=== PATIENT | male | born 1960 | race Caucasian/White ===

== ENCOUNTER 2018-02-23 07:01 | Inpatient (IN) ==
[2018-02-23 07:41] LABS: Basophils # 0.1 10*3/uL (0.0-0.2); Basophils % 0.8 % (0.0-0.8); Eosinophils # 0.3 10*3/uL (0.0-0.87); Eosinophils % 3.2 % (0.00-10.9); Hematocrit 50.4 VOL% (42.0-52.0); Hemoglobin 17.6 GM/DL (14.0-18.0); Immature Granulocytes % 0.6 %; Immature Granulocytes Absolute 0.05 #; Lymphocytes # 0.8 10*3/uL (1.4-4.0); Lymphocytes % 10.6 % (21.2-54.2); Mean Corpuscular HGB Conc 34.9 GM/DL (32-36); Mean Corpuscular Hemoglobin 31 PG (27-34); Mean Platelet Volume 10.1 FL (9.6-12.0); Monocytes # 0.7 10*3/uL (0.11-0.8); Monocytes % 8.7 % (1.7-12.7); Neutrophils # 5.9 10*3/uL (1.4-7.4); Neutrophils % 76.1 % (38.7-73.9); Platelet Count 275 T/CUMM (130-400); Red Blood Count 5.66 MC/CUMM (3.8-5.5); Red Cell Distribution Width 12.3 % (9.3-17.3); White Blood Count 7.8 T/CUMM (4-12)
[2018-02-23 07:42] LABS: INR 1.1; PT Patient Result 11.1 SECS; Partial Thromboplastin Time 29.9 SECS (0-40)
[2018-02-23 08:08] LABS: Alanine Aminotransferase 30 U/L (16-61); Albumin 3.7 G/DL (3.4-5.0); Alkaline Phosphatase 67 U/L (45-117); Aspartate Amino Transferase 19 U/L (0-37); Blood Urea Nitrogen 20 MG/DL (7-18); Calcium 8.9 MG/DL (8.5-10.1); Glucose 123 MG/DL (74-106); Osmolality,Calculated 280.5 MOS/KG (273-304); Potassium 3.7 MMOL/L (3.5-5.1); Sodium 139 MMOL/L (136-145); Total Protein 7.6 G/DL (6.4-8.3); Troponin I Only < 0.015 NG/ML (0.00-0.045)
[2018-02-23] MEDS ORDERED: hydrALAZINE 20 MG/1 ML VIAL IV STA ×2 (08:39→10:47)
[2018-02-23] MEDS ORDERED: ONDANSETRON 4 MG/2 ML VIAL IV STA (08:40)
[2018-02-23] MEDS ORDERED: fentaNYL 100 MCG/2 ML VIAL IV STA (08:40)
[2018-02-23] MEDS ORDERED: ONDANSETRON 4 MG/2 ML VIAL ONE (08:41)
[2018-02-23] MEDS ORDERED: fentaNYL 100 MCG/2 ML VIAL ONE (08:42)
[2018-02-23] MEDS ORDERED: KETOROLAC 30 MG/1 ML VIAL IV STA (10:47)
[2018-02-23] MEDS ORDERED: KETOROLAC 30 MG/1 ML VIAL ONE (10:48)
[2018-02-23] MEDS ORDERED: amLODIPine 5 MG TABLET PO STA (11:42)
[2018-02-23] MEDS ORDERED: DILTIAZEM 100 MG VIAL.ADD IV ONE (12:53)
[2018-02-23] MEDS ORDERED: niCARdipine 25 MG/10 ML VIAL IV ONE (12:55)
[2018-02-23] MEDS: niCARdipine INJ 25 MG in SODIUM CHLORIDE 0.9% 240 ML IV PRN ×3 (13:00→21:22)
[2018-02-23] MEDS ORDERED: diphenhydrAMINE CAP 25 MG CAPSULE PO PRN (13:47)
[2018-02-23] MEDS ORDERED: guaiFENesin/DM ER 600-30 MG TABLET PO PRN (13:47)
[2018-02-23] MEDS ORDERED: ACETAMINOPHEN 325 MG TABLET PO PRN (13:47)
[2018-02-23] MEDS ORDERED: FUROSEMIDE 20 MG TABLET PO PRN (13:50)
[2018-02-23] MEDS ORDERED: POTASSIUM CHLORIDE 20 MEQ TABLET PO SCH (14:00)
[2018-02-23] MEDS ORDERED: IBUPROFEN 800 MG TABLET PO PRN (14:09)
[2018-02-23] MEDS: APIXABAN 5 MG TABLET PO SCH ×2 (18:09→21:06)
[2018-02-23] MEDS: PANTOPRAZOLE 40 MG TABLET PO SCH (18:10)
[2018-02-23] MEDS: hydrALAZINE 25 MG TABLET PO SCH ×2 (18:10→21:06)
[2018-02-23] MEDS: FUROSEMIDE 40 MG/4 ML VIAL IV SCH (18:10)
[2018-02-23] MEDS: LISINOPRIL/HCTZ 20-12.5 MG TABLET PO SCH ×2 (18:10→21:06)
[2018-02-23] MEDS: CARVEDILOL 25 MG TABLET PO SCH ×2 (18:10→21:06)
[2018-02-24] MEDS: niCARdipine INJ 25 MG in SODIUM CHLORIDE 0.9% 240 ML IV PRN (00:56)
[2018-02-24] MEDS: LEVOTHYROXINE 200 MCG TABLET PO SCH (05:42)
[2018-02-24 05:45] LABS: Basophils % 0.4 % (0.0-0.8); Eosinophils # 0.2 10*3/uL (0.0-0.87); Eosinophils % 2.1 % (0.00-10.9); Hematocrit 47.4 VOL% (42.0-52.0); Hemoglobin 16.7 GM/DL (14.0-18.0); Immature Granulocytes % 0.8 %; Immature Granulocytes Absolute 0.06 #; Lymphocytes # 0.9 10*3/uL (1.4-4.0); Lymphocytes % 11.6 % (21.2-54.2); Mean Corpuscular HGB Conc 35.2 GM/DL (32-36); Mean Corpuscular Hemoglobin 32 PG (27-34); Mean Corpuscular Volume 89.9 FL (87-102); Mean Platelet Volume 10.5 FL (9.6-12.0); Monocytes # 0.8 10*3/uL (0.11-0.8); Monocytes % 9.4 % (1.7-12.7); Neutrophils % 75.7 % (38.7-73.9); Platelet Count 284 T/CUMM (130-400); Red Blood Count 5.27 MC/CUMM (3.8-5.5); Red Cell Distribution Width 12.5 % (9.3-17.3)
[2018-02-24 06:20] LABS: Calcium 8.8 MG/DL (8.5-10.1); Osmolality,Calculated 278.5 MOS/KG (273-304); Potassium 3.2 MMOL/L (3.5-5.1); Risk Ratio 3.79; VLDL CHOLESTEROL 19.6 MG/DL
[2018-02-24] MEDS: FUROSEMIDE 40 MG/4 ML VIAL IV SCH (08:56)
[2018-02-24] MEDS: POTASSIUM CHLORIDE 20 MEQ TABLET PO SCH ×4 (08:59→20:48)
[2018-02-24] MEDS: LISINOPRIL/HCTZ 20-12.5 MG TABLET PO SCH ×2 (08:59→20:47)
[2018-02-24] MEDS: hydrALAZINE 25 MG TABLET PO SCH ×2 (08:59→20:48)
[2018-02-24] MEDS: CARVEDILOL 25 MG TABLET PO SCH ×2 (08:59→20:48)
[2018-02-24] MEDS: APIXABAN 5 MG TABLET PO SCH ×2 (08:59→20:48)
[2018-02-24] MEDS: PANTOPRAZOLE 40 MG TABLET PO SCH (09:00)
[2018-02-24] MEDS: CYCLOBENZAPRINE 10 MG TABLET PO PRN ×2 (12:41→20:49)
[2018-02-24] MEDS ORDERED: hydrALAZINE 20 MG/1 ML VIAL IV PRN (17:50)
[2018-02-25 05:18] LABS: Calcium 8.8 MG/DL (8.5-10.1); Osmolality,Calculated 283.3 MOS/KG (273-304); Potassium 3.8 MMOL/L (3.5-5.1)
[2018-02-25] MEDS: LEVOTHYROXINE 200 MCG TABLET PO SCH (06:08)
[2018-02-25] MEDS: CARVEDILOL 25 MG TABLET PO SCH (09:03)
[2018-02-25] MEDS: PANTOPRAZOLE 40 MG TABLET PO SCH (09:03)
[2018-02-25] MEDS: hydrALAZINE 25 MG TABLET PO SCH ×2 (09:04→15:38)
[2018-02-25] MEDS: APIXABAN 5 MG TABLET PO SCH (09:04)
[2018-02-25] MEDS: LISINOPRIL/HCTZ 20-12.5 MG TABLET PO SCH (09:04)
[2018-02-25 10:03] VITALS: BP 145/90
== END 2018-02-25 17:15 | disposition home or self-care (01) | DRG 305 ==
LOC: N.ED 07:01 → N.EDINP 13:47 → SUATTDRO 13:47 → N.CC 15:05
PROVIDERS: ADMIT Internal Medicine; ATTEND Family Medicine